=== PATIENT | male | born 1940 | race Caucasian/White ===

== ENCOUNTER → 2016-08-16 | Outpatient (REF) | payer MEDICARE ==
[~2016-08-16] MED LIST: ASPI325T OR; ATOR40TA PO; BISO5TAB5 PO; CALA80TA OR; FINA5TAB2 PO; FLOM5CAP PO; GLUC1000 OR; HYDR10TAB PO; ISOS30TA4 PO; LISI-538 PO; LISI10TA4 OR; LISI20TA5 OR; LOPE2CA PO; METF-414 PO; ONDA4TAB6 PO; PRAD150C PO; PROA1AER INH; SPIR25TA2 PO; pradaxa PO; robitussin PO
[2016-08-16 18:51] LABS: BASO % 0.5 % (0.0-1.0); EOS # 0.1 K/mm3 (0.0-0.50); EOS % 0.9 % (0.0-3.0); LARGE UNSTAINED CELL # 0.2 K/mm3 (0.0-0.4); LARGE UNSTAINED CELL % 2.3 % (0.0-4.0); LYMPH # 2.8 K/mm3 (1.5-4.5); LYMPH % 33.9 % (24.0-44.0); MEAN CORPUSCULAR HEMOGLOBIN 31.1 pg (27.0-33.0); MEAN CORPUSCULAR HGB CONC 32.7 g/dl (32.0-36.5); MEAN CORPUSCULAR VOLUME 94.9 fl (80.0-96.0); MONO # 0.7 K/mm3 (0.0-0.8); MONO % 8.2 % (0.0-5.0); NEUTROPHILS # 4.3 K/mm3 (1.8-7.7); NEUTROPHILS % 54.2 % (36.0-66.0); PLATELET COUNT, AUTOMATED 224 k/mm3 (150-450); RED CELL DISTRIBUTION WIDTH 13.5 % (11.5-14.5); WHITE BLOOD COUNT 7.9 K/mm3 (4.0-10.0)
[2016-08-16 19:15] LABS: ALBUMIN 3.2 GM/DL (3.2-5.2); ALBUMIN/GLOBULIN RATIO 0.86 (1.00-1.93); ALKALINE PHOSPHATASE 108 U/L (45-117); ALT/SGPT 15 U/L (12-78); ANION GAP 7 MEQ/L (8-16); AST/SGOT 12 U/L (15-37); BILIRUBIN,TOTAL 0.5 MG/DL (0.2-1.0); BLOOD UREA NITROGEN 14 MG/DL (7-18); CALCIUM LEVEL 8.3 MG/DL (8.8-10.2); CARBON DIOXIDE LEVEL 26 MEQ/L (21-32); CHLORIDE LEVEL 108 MEQ/L (98-107); CHOLESTEROL LEVEL 87 MG/DL (<200); CREATININE FOR GFR 0.89 MG/DL (0.70-1.30); GLOMERULAR FILTRATION RATE > 60.0 (>42); GLUCOSE, FASTING 111 MG/DL (83-110); POTASSIUM SERUM 4.2 MEQ/L (3.5-5.1); SODIUM LEVEL 141 MEQ/L (136-145); TOTAL PROTEIN 6.9 GM/DL (6.4-8.2); TRIGLYCERIDES LEVEL 103 MG/DL (<150)
== END ==
LOC: M SFHCADAM 16:08
PROVIDERS: ATTEND Physician Assistant Medical
DX: E11.9 Type 2 diabetes mellitus without complications (principal); F17.210 Nicotine dependence, cigarettes, uncomplicated; J44.9 Chronic obstructive pulmonary disease, unspecified; I25.5 Ischemic cardiomyopathy; E78.00 Pure hypercholesterolemia, unspecified; D63.8 Anemia in other chronic diseases classified elsewhere; Z85.038 Personal history of other malignant neoplasm of large intestine; Z23 Encounter for immunization
CPT/HCPCS: 80053; 80061; 83036; 84443; 85025; 90471; 90715; 90732; G0009; G0463

== ENCOUNTER → 2016-10-09 | Outpatient (REF) | payer MEDICARE ==
[~2016-10-09] MED LIST changes: -ATOR40TA PO; +ATOR40TA75 PO; -PROA1AER INH; +PROAAER10 INH
== END ==
LOC: M SMT 17:28
PROVIDERS: ATTEND Urology
DX: N39.0 Urinary tract infection, site not specified (principal)
CPT/HCPCS: 51798; 87086; G0463

== ENCOUNTER → 2017-03-25 | Outpatient (REF) | payer MEDICARE ==
[2017-03-25 13:09] LABS: BASO # 0.1 10^3/uL (0.0-0.2); BASO % 0.6 % (0.0-1.0); EOS # 0.1 10^3/uL (0.0-0.50); EOS % 1.4 % (0.0-3.0); IMMATURE GRANULOCYTE % 0.6 % (0-0); LYMPH # 2.4 10^3/uL (1.5-4.5); LYMPH % 28.6 % (24.0-44.0); MEAN CORPUSCULAR HEMOGLOBIN 32.3 pg (27.0-33.0); MEAN CORPUSCULAR HGB CONC 32.6 g/dl (32.0-36.5); MEAN CORPUSCULAR VOLUME 98.9 fl (80.0-96.0); MONO # 0.9 10^3/uL (0.0-0.8); MONO % 10.3 % (0.0-5.0); NEUTROPHILS # 4.9 10^3/uL (1.8-7.7); NEUTROPHILS % 58.5 % (36.0-66.0); PLATELET COUNT, AUTOMATED 219 10^3/uL (150-450); RED CELL DISTRIBUTION WIDTH 13.2 % (11.5-14.5); WHITE BLOOD COUNT 8.4 10^3/uL (4.0-10.0)
[2017-03-25 14:12] LABS: ALBUMIN 3.4 GM/DL (3.2-5.2); ALBUMIN/GLOBULIN RATIO 0.85 (1.00-1.93); ALKALINE PHOSPHATASE 114 U/L (45-117); ALT/SGPT 21 U/L (12-78); ANION GAP 12 MEQ/L (8-16); AST/SGOT 13 U/L (7-37); BILIRUBIN,TOTAL 0.6 MG/DL (0.2-1.0); BLOOD UREA NITROGEN 14 MG/DL (7-18); CALCIUM LEVEL 8.5 MG/DL (8.8-10.2); CARBON DIOXIDE LEVEL 22 MEQ/L (21-32); CHLORIDE LEVEL 106 MEQ/L (98-107); CHOLESTEROL LEVEL 90 MG/DL (<200); CREATININE FOR GFR 0.94 MG/DL (0.70-1.30); GLOMERULAR FILTRATION RATE > 60.0 (>42); GLUCOSE, FASTING 181 MG/DL (83-110); POTASSIUM SERUM 4.3 MEQ/L (3.5-5.1); SODIUM LEVEL 140 MEQ/L (136-145); TOTAL PROTEIN 7.4 GM/DL (6.4-8.2); TRIGLYCERIDES LEVEL 101 MG/DL (<150)
== END ==
LOC: M SFHCADAM 09:23
PROVIDERS: ATTEND Physician Assistant Medical
DX: I25.5 Ischemic cardiomyopathy (principal); E78.00 Pure hypercholesterolemia, unspecified; E11.9 Type 2 diabetes mellitus without complications
CPT/HCPCS: 80053; 80061; 82043; 83036; 84443; 85025; 90662; G0008

== ENCOUNTER → 2017-06-09 | Outpatient (REF) | payer MEDICARE ==
[2017-06-09 19:21] LABS: APPEARANCE, URINE CLEAR (CLEAR); BACTERIA, URINE AUTO 1+ (NEGATIVE); BILIRUBIN, URINE AUTO NEGATIVE (NEGATIVE); BLOOD, URINE BLOOD 1+ (NEGATIVE); COLOR, URINE YELLOW (YELLOW); GLUCOSE, URINE (UA) AUTO 1+ mg/dL (NEGATIVE); KETONE, URINE AUTO NEGATIVE (NEGATIVE); LEUKOCYTE ESTERASE, URINE AUTO 2+ (NEGATIVE); NITRITE, URINE AUTO NEGATIVE (NEGATIVE); PROTEIN, URINE AUTO NEGATIVE (NEGATIVE); RBC, URINE AUTO 4 /HPF (0-3); SPECIFIC GRAVITY URINE AUTO 1.018 (1.002-1.035); SQUAMOUS EPITHELIAL CELL UR AU 1 /HPF (0-6); UROBILINOGEN, URINE AUTO 0.2 mg/dL (0.0-2.0); WBC, URINE AUTO 8 /HPF (0-3)
== END ==
LOC: M SMT 17:10
DX: N40.1 Benign prostatic hyperplasia with lower urinary tract symptoms (principal)
CPT/HCPCS: 81001

== ENCOUNTER → 2017-10-30 | Outpatient (REF) | payer MEDICARE ==
[2017-10-30 19:32] LABS: BASO # 0.1 10^3/uL (0.0-0.2); BASO % 0.6 % (0.0-1.0); EOS # 0.1 10^3/uL (0.0-0.50); EOS % 0.9 % (0.0-3.0); HEMOGLOBIN 12.6 g/dl (13.5-17.5); IMMATURE GRANULOCYTE % 0.6 % (0-3.0); LYMPH % 33.6 % (24.0-44.0); MEAN CORPUSCULAR HEMOGLOBIN 32.6 pg (27.0-33.0); MEAN CORPUSCULAR HGB CONC 33.2 g/dl (32.0-36.5); MEAN CORPUSCULAR VOLUME 98.4 fl (80.0-96.0); MONO % 10.6 % (0.0-5.0); NEUTROPHILS # 4.8 10^3/uL (1.8-7.7); NEUTROPHILS % 53.7 % (36.0-66.0); PLATELET COUNT, AUTOMATED 188 10^3/uL (150-450); RED BLOOD COUNT 3.86 10^6/uL (4.30-6.10); RED CELL DISTRIBUTION WIDTH 13.5 % (11.5-14.5)
[2017-10-30 19:53] LABS: ESTIMATED AVERAGE GLUCOSE 183 MG/DL (60-110)
[2017-10-30 20:05] LABS: TOTAL 25(OH) VITAMIN D 16.7 NG/ML (30.0-100.0)
[2017-10-30 20:06] LABS: ALBUMIN 3.2 GM/DL (3.2-5.2); ALBUMIN/GLOBULIN RATIO 0.86 (1.00-1.93); ALKALINE PHOSPHATASE 102 U/L (45-117); ALT/SGPT 20 U/L (12-78); ANION GAP 11 MEQ/L (8-16); AST/SGOT 10 U/L (7-37); BILIRUBIN,TOTAL 0.5 MG/DL (0.2-1.0); BLOOD UREA NITROGEN 20 MG/DL (7-18); CALCIUM LEVEL 8.6 MG/DL (8.8-10.2); CARBON DIOXIDE LEVEL 19 MEQ/L (21-32); CHLORIDE LEVEL 114 MEQ/L (98-107); CHOLESTEROL LEVEL 82 MG/DL (<200); CHOLESTEROL RISK RATIO 2.562 (<5); CREATININE FOR GFR 1.13 MG/DL (0.70-1.30); GLOMERULAR FILTRATION RATE > 60.0 (>42); GLUCOSE, FASTING 122 MG/DL (70-100); HDL CHOLESTEROL 32 MG/DL (>40); LDL CHOLESTEROL 24.6 MG/DL (<100); NON-HDL-C 50 MG/DL; POTASSIUM SERUM 4.3 MEQ/L (3.5-5.1); SODIUM LEVEL 144 MEQ/L (136-145); THYROID STIMULATING HORMONE 0.824 uIU/ML (0.358-3.740); TOTAL PROTEIN 6.9 GM/DL (6.4-8.2); TRIGLYCERIDES LEVEL 127 MG/DL (<150)
== END ==
LOC: M SFHCADAM 15:40
DX: I25.5 Ischemic cardiomyopathy (principal); E11.9 Type 2 diabetes mellitus without complications; E78.00 Pure hypercholesterolemia, unspecified; J44.9 Chronic obstructive pulmonary disease, unspecified; Z79.899 Other long term (current) drug therapy
CPT/HCPCS: 84443

== ENCOUNTER → 2017-10-31 | Outpatient (REF) | payer MEDICARE ==
[2017-10-31 20:03] LABS: HEMATOCRIT 37.9 % (42.0-52.0); HEMOGLOBIN 12.2 g/dl (13.5-17.5); MEAN CORPUSCULAR HGB CONC 32.2 g/dl (32.0-36.5); MEAN CORPUSCULAR VOLUME 99.5 fl (80.0-96.0); PLATELET COUNT, AUTOMATED 181 10^3/uL (150-450); RED BLOOD COUNT 3.81 10^6/uL (4.30-6.10); RED CELL DISTRIBUTION WIDTH 13.4 % (11.5-14.5); WHITE BLOOD COUNT 7.4 10^3/uL (4.0-10.0)
[2017-10-31 20:41] LABS: FERRITIN 109 NG/ML (26-388); IRON (FE) 80 UG/DL (65-175); PERCENT SATURATION 29.4 % (19.7-50.0); TOTAL IRON BINDING CAPACITY 272 UG/DL (250-450)
[2017-10-31 20:48] LABS: FOLATE 13.3 NG/ML; VITAMIN B12 LEVEL 356 PG/ML
== END ==
LOC: M SFHCADAM 13:56
DX: D64.9 Anemia, unspecified (principal)
CPT/HCPCS: 82746

== ENCOUNTER → 2017-12-11 | Outpatient (CLI) | payer MEDICARE | LOC: M RAD 11:58 | DX: N40.1 Benign prostatic hyperplasia with lower urinary tract symptoms (principal); K76.0 Fatty (change of) liver, not elsewhere classified; N32.3 Diverticulum of bladder; N28.1 Cyst of kidney, acquired; N32.89 Other specified disorders of bladder | CPT/HCPCS: 76775 ==

== ENCOUNTER 2018-01-16 14:19 | Inpatient (IN) | payer MEDICARE ==
[~2018-01-16 14:19] MED LIST changes: +ACETAMINOPHEN TAB 650MG DOSE (2X325MG) PO; -ASPI325T OR; -ATOR40TA75 PO; +BISACODYL 5 MG TAB PO; -BISO5TAB5 PO; -CALA80TA OR; +DOCUSATE SODIUM 100 MG CAP PO; -FINA5TAB2 PO; -FLOM5CAP PO; -GLUC1000 OR; -HYDR10TAB PO; -ISOS30TA4 PO; -LISI-538 PO; -LISI10TA4 OR; -LISI20TA5 OR; -LOPE2CA PO; -METF-414 PO; -ONDA4TAB6 PO; -PRAD150C PO; -PROAAER10 INH; -SPIR25TA2 PO; -pradaxa PO; -robitussin PO
[2018-01-16 14:56] LABS: BASO # 0.1 10^3/uL (0.0-0.2); BASO % 0.5 % (0.0-1.0); EOS # 0.1 10^3/uL (0.0-0.50); HEMATOCRIT 36.3 % (42.0-52.0); HEMOGLOBIN 11.9 g/dl (13.5-17.5); IMMATURE GRANULOCYTE % 0.6 % (0-3.0); LYMPH # 2.3 10^3/uL (1.5-4.5); LYMPH % 24.9 % (24.0-44.0); MEAN CORPUSCULAR HEMOGLOBIN 32.2 pg (27.0-33.0); MEAN CORPUSCULAR HGB CONC 32.8 g/dl (32.0-36.5); MEAN CORPUSCULAR VOLUME 98.4 fl (80.0-96.0); MONO # 0.8 10^3/uL (0.0-0.8); MONO % 8.6 % (0.0-5.0); NEUTROPHILS % 64.4 % (36.0-66.0); PLATELET COUNT, AUTOMATED 225 10^3/uL (150-450); RED BLOOD COUNT 3.69 10^6/uL (4.30-6.10); RED CELL DISTRIBUTION WIDTH 13.2 % (11.5-14.5); WHITE BLOOD COUNT 9.4 10^3/uL (4.0-10.0)
[2018-01-16 16:07] LABS: ALBUMIN/GLOBULIN RATIO 0.73 (1.00-1.93); ALKALINE PHOSPHATASE 97 U/L (45-117); ALT/SGPT 16 U/L (12-78); ANION GAP 8 MEQ/L (8-16); AST/SGOT 10 U/L (7-37); BILIRUBIN,TOTAL 0.5 MG/DL (0.2-1.0); BLOOD UREA NITROGEN 16 MG/DL (7-18); C REACTIVE PROTEIN QUANTITATIV 3.15 MG/DL (0.00-0.30); CALCIUM LEVEL 8.4 MG/DL (8.8-10.2); CARBON DIOXIDE LEVEL 23 MEQ/L (21-32); CHLORIDE LEVEL 108 MEQ/L (98-107); CREATININE FOR GFR 1.12 MG/DL (0.70-1.30); GLOMERULAR FILTRATION RATE > 60.0 (>42); GLUCOSE, FASTING 171 MG/DL (70-100); POTASSIUM SERUM 4.3 MEQ/L (3.5-5.1); SODIUM LEVEL 139 MEQ/L (136-145); TOTAL PROTEIN 7.1 GM/DL (6.4-8.2)
[2018-01-16] MEDS: **hydrALAZINE** 10 MG TAB PO ×2 (17:15→21:19)
[2018-01-16] MEDS: FINASTERIDE 5 MG TAB PO (17:16)
[2018-01-16] MEDS: metFORMIN XR 500MG TAB *GLUCOPHAGE XR PO (18:24)
[2018-01-16] MEDS: CEFTAROLINE FOSAMIL 600 MG in D5W MINI-BAG PLUS 50 ML IV (18:24)
[2018-01-16] MEDS: DABIGATRAN ETEXILATE 75 MG CAP (PRADAXA) PO (21:18)
[2018-01-16] MEDS: ATORVASTATIN 20 MG TAB PO (21:18)
[2018-01-16] MEDS: TAMSULOSIN 0.4 MG CAP PO (21:18)
[2018-01-17] MEDS: CEFTAROLINE FOSAMIL 600 MG in D5W MINI-BAG PLUS 50 ML IV ×2 (05:36→17:26)
[2018-01-17] MEDS: **hydrALAZINE** 10 MG TAB PO ×3 (05:37→20:54)
[2018-01-17 07:02] LABS: BASO # 0.1 10^3/uL (0.0-0.2); BASO % 0.6 % (0.0-1.0); EOS # 0.2 10^3/uL (0.0-0.50); EOS % 1.6 % (0.0-3.0); HEMATOCRIT 37.9 % (42.0-52.0); HEMOGLOBIN 12.6 g/dl (13.5-17.5); IMMATURE GRANULOCYTE % 0.7 % (0-3.0); LYMPH # 2.9 10^3/uL (1.5-4.5); LYMPH % 31.3 % (24.0-44.0); MEAN CORPUSCULAR HEMOGLOBIN 32.2 pg (27.0-33.0); MEAN CORPUSCULAR HGB CONC 33.2 g/dl (32.0-36.5); MEAN CORPUSCULAR VOLUME 96.9 fl (80.0-96.0); MONO % 10.9 % (0.0-5.0); NEUTROPHILS # 5.1 10^3/uL (1.8-7.7); NEUTROPHILS % 54.9 % (36.0-66.0); PLATELET COUNT, AUTOMATED 221 10^3/uL (150-450); RED BLOOD COUNT 3.91 10^6/uL (4.30-6.10); RED CELL DISTRIBUTION WIDTH 13.2 % (11.5-14.5); WHITE BLOOD COUNT 9.4 10^3/uL (4.0-10.0)
[2018-01-17 07:04] LABS: ALBUMIN 2.9 GM/DL (3.2-5.2); ANION GAP 9 MEQ/L (8-16); BLOOD UREA NITROGEN 18 MG/DL (7-18); C REACTIVE PROTEIN QUANTITATIV 2.77 MG/DL (0.00-0.30); CALCIUM LEVEL 8.3 MG/DL (8.8-10.2); CARBON DIOXIDE LEVEL 21 MEQ/L (21-32); CHLORIDE LEVEL 108 MEQ/L (98-107); CREATININE FOR GFR 0.94 MG/DL (0.70-1.30); GLOMERULAR FILTRATION RATE > 60.0 (>42); GLUCOSE, FASTING 170 MG/DL (70-100); POTASSIUM SERUM 4.3 MEQ/L (3.5-5.1); SODIUM LEVEL 138 MEQ/L (136-145)
[2018-01-17] MEDS ORDERED: LIDOCAINE 1% MDV 20ML VIAL As Ordered (07:26)
[2018-01-17 07:31] LABS: ERYTHROCYTE SEDIMENTATION RATE 70 mm/hr (0-20)
[2018-01-17] MEDS: ASPIRIN 81 MG ENTERIC TAB PO (08:35)
[2018-01-17] MEDS: DABIGATRAN ETEXILATE 75 MG CAP (PRADAXA) PO ×2 (08:35→20:50)
[2018-01-17] MEDS: FINASTERIDE 5 MG TAB PO (08:36)
[2018-01-17] MEDS: SPIRONOLACTONE 25 MG TAB PO (08:36)
[2018-01-17] MEDS: LORATADINE 10 MG TAB PO (08:38)
[2018-01-17] MEDS: ISOSORBIDE MON. (IMDUR) 30 MG XR TAB PO (08:38)
[2018-01-17] MEDS: BISOPROLOL FUMARATE 5 MG TAB PO (08:39)
[2018-01-17] MEDS: LISINOPRIL 20 MG TAB PO (08:39)
[2018-01-17] MEDS: INFLUENZA VIRUS VACCINE HIGH DOSE 0.5 ML SYRINGE (90662) IM (08:42)
[2018-01-17 09:21] LABS: SOURCE, BODY FLUID RT ELBOW; SYNOVIAL FLUID COLOR AMBER (YELLOW)
[2018-01-17 09:22] LABS: APPEARANCE, BODY FLUID CLOUDY (CLEAR); BF DIFF IF INDICATED? YES (NO); BF MONONUCLEAR CELL % 12.2 % (0-0); BF POLYMORPHONUCLEAR CELL % 87.8 % (0-0); RBC BODY FLUID 20 10^3/uL (<2); WBC BODY FLUID 18790 /uL (0-10)
[2018-01-17 09:57] LABS: CRYSTALS, BODY FLUID NONE SEEN (NONE SEEN); SOURCE, BODY FLUID CRYSTALS RT ELBOW
[2018-01-17] MEDS ORDERED: ALBUTEROL 90 MCG/ACT 8GM HFA INHALER INH (15:45)
[2018-01-17] MEDS: metFORMIN XR 500MG TAB *GLUCOPHAGE XR PO (17:25)
[2018-01-17 17:36] LABS: BEDSIDE GLUCOSE 161 MG/DL (83-110)
[2018-01-17] MEDS: TAMSULOSIN 0.4 MG CAP PO (20:50)
[2018-01-17] MEDS: ATORVASTATIN 20 MG TAB PO (20:50)
[2018-01-18] MEDS: **hydrALAZINE** 10 MG TAB PO (06:00)
[2018-01-18] MEDS: CEFTAROLINE FOSAMIL 600 MG in D5W MINI-BAG PLUS 50 ML IV (06:34)
[2018-01-18] MEDS: LISINOPRIL 20 MG TAB PO (09:00)
[2018-01-18] MEDS: DABIGATRAN ETEXILATE 75 MG CAP (PRADAXA) PO (09:02)
[2018-01-18] MEDS: LORATADINE 10 MG TAB PO (09:03)
[2018-01-18] MEDS: FINASTERIDE 5 MG TAB PO (09:03)
[2018-01-18] MEDS: ASPIRIN 81 MG ENTERIC TAB PO (09:03)
[2018-01-18] MEDS: ISOSORBIDE MON. (IMDUR) 30 MG XR TAB PO (09:03)
[2018-01-18] MEDS: BISOPROLOL FUMARATE 5 MG TAB PO (09:09)
[2018-01-18] MEDS: SPIRONOLACTONE 25 MG TAB PO (09:10)
== END 2018-01-18 12:56 | disposition home or self-care (01) | DRG 558 ==
LOC: M MS5PR 14:19
DX: M70.21 Olecranon bursitis, right elbow (principal); I48.92 Unspecified atrial flutter; Z79.899 Other long term (current) drug therapy; E11.9 Type 2 diabetes mellitus without complications; I25.10 Atherosclerotic heart disease of native coronary artery without angina pectoris; I25.2 Old myocardial infarction; I11.9 Hypertensive heart disease without heart failure; J43.9 Emphysema, unspecified; N40.0 Benign prostatic hyperplasia without lower urinary tract symptoms; E55.9 Vitamin D deficiency, unspecified; Z85.038 Personal history of other malignant neoplasm of large intestine; Z88.8 Allergy status to other drugs, medicaments and biological substances; F17.200 Nicotine dependence, unspecified, uncomplicated

== ENCOUNTER → 2018-01-20 | Outpatient (REF) | payer MEDICARE ==
[2018-01-20 19:24] LABS: BF MONONUCLEAR CELL % 8.3 % (0-0); BF POLYMORPHONUCLEAR CELL % 91.7 % (0-0)
[2018-01-20 19:26] LABS: APPEARANCE, BODY FLUID TURBID (CLEAR); SOURCE, BODY FLUID RT ELBOW; SYNOVIAL FLUID COLOR RED (YELLOW)
[2018-01-20 19:27] LABS: WBC BODY FLUID 19765 /uL (0-10)
[2018-01-20 19:28] LABS: BF DIFF IF INDICATED? YES (NO); RBC BODY FLUID 285 10^3/uL (<2)
[2018-01-20 19:33] LABS: CRYSTALS, BODY FLUID NONE SEEN (NONE SEEN); SOURCE, BODY FLUID CRYSTALS RT ELBOW
[2018-01-20 21:44] LABS: SOURCE, BODY FLUID GLUCOSE RT ELBOW; SOURCE, BODY FLUID URIC ACID RT ELBOW; URIC ACID, BODY FLUID 6.1 MG/DL (NOT ESTABLISHED)
[2018-01-21 08:03] LABS: BODY FLUID RHEUMATOID SCREEN POSITIVE (NEGATIVE)
[2018-01-21 08:14] LABS: BODY FLUID RHEUMATOID TITER 1:32
[2018-01-21 08:15] LABS: MUCIN CLOT TEST 4+ (4+)
== END ==
LOC: M LAB REF 17:46
DX: M70.21 Olecranon bursitis, right elbow (principal)
CPT/HCPCS: 82945

== ENCOUNTER → 2018-05-12 | Outpatient (REF) | payer MEDICARE ==
[~2018-05-12] MED LIST changes: -ACETAMINOPHEN TAB 650MG DOSE (2X325MG) PO; +ASPI1TAB PO; +ASPI325T OR; +ATOR40TA75 PO; -BISACODYL 5 MG TAB PO; +BISO5TAB5 PO; +CALA80TA OR; -DOCUSATE SODIUM 100 MG CAP PO; +FINA5TAB2 PO; +FLOM0.4C39 PO; +GLUC1000 OR; +HYDR10TAB PO; +ISOS30TA4 PO; +LISI-538 PO; +LISI10TA4 OR; +LISI20TA5 OR; +LOPE2CA PO; +METF-414 PO; +ONDA4TAB6 PO; +PRAD150C PO; +PROAAER10 INH; +SPIR-10 PO; +pradaxa PO; +robitussin PO
[2018-05-12 12:56] LABS: BASO # 0.1 10^3/uL (0.0-0.2); BASO % 0.5 % (0.0-1.0); EOS # 0.1 10^3/uL (0.0-0.50); EOS % 1.2 % (0.0-3.0); HEMATOCRIT 41.7 % (42.0-52.0); HEMOGLOBIN 13.6 g/dl (13.5-17.5); LYMPH # 3.4 10^3/uL (1.5-4.5); LYMPH % 34.8 % (24.0-44.0); MEAN CORPUSCULAR HEMOGLOBIN 32.3 pg (27.0-33.0); MEAN CORPUSCULAR HGB CONC 32.6 g/dl (32.0-36.5); NEUTROPHILS # 5.1 10^3/uL (1.8-7.7); NEUTROPHILS % 52.8 % (36.0-66.0); PLATELET COUNT, AUTOMATED 221 10^3/uL (150-450); RED BLOOD COUNT 4.21 10^6/uL (4.30-6.10); WHITE BLOOD COUNT 9.7 10^3/uL (4.0-10.0)
[2018-05-12 13:24] LABS: ALBUMIN 3.1 GM/DL (3.2-5.2); ALT/SGPT 17 U/L (12-78); BILIRUBIN,TOTAL 0.5 MG/DL (0.2-1.0); BLOOD UREA NITROGEN 14 MG/DL (7-18); CALCIUM LEVEL 8.4 MG/DL (8.8-10.2); CARBON DIOXIDE LEVEL 24 MEQ/L (21-32); CHLORIDE LEVEL 106 MEQ/L (98-107); CHOLESTEROL LEVEL 93 MG/DL (<200); CHOLESTEROL RISK RATIO 2.818 (<5); GLOMERULAR FILTRATION RATE > 60.0 (>42); GLUCOSE, FASTING 162 MG/DL (70-100); HDL CHOLESTEROL 33 MG/DL (>40); LDL CHOLESTEROL 37 MG/DL (<100); NON-HDL-C 60 MG/DL; POTASSIUM SERUM 4.2 MEQ/L (3.5-5.1); SODIUM LEVEL 142 MEQ/L (136-145); TOTAL PROTEIN 6.8 GM/DL (6.4-8.2); TRIGLYCERIDES LEVEL 113 MG/DL (<150)
[2018-05-12 13:57] LABS: CREATININE, URINE 94.3 MG/DL; MALB URINE SIEMENS 37.7 MG/L; MAU/CREAT RATIO 39.9 MCG/MG (0.0-30.0)
[2018-05-12 14:28] LABS: HEMOGLOBIN A1c 8.7 %
[2018-05-12 21:27] LABS: TOTAL 25(OH) VITAMIN D 15.5 NG/ML (30.0-100.0)
== END ==
LOC: M SFHCADAM 08:12
PROVIDERS: ATTEND Physician Assistant Medical
DX: E11.9 Type 2 diabetes mellitus without complications (principal); E55.9 Vitamin D deficiency, unspecified

== ENCOUNTER → 2019-02-04 | Outpatient (REF) | payer MEDICARE ==
[~2019-02-04] MED LIST changes: -ASPI1TAB PO; +ASPI81TA26 PO; -BISO5TAB5 PO; +BISO5TAB9 PO; +HYDR-2773 PO; -PRAD150C PO; +PRAD150C6 PO
[2019-02-04 17:14] LABS: HEMATOCRIT 40.9 % (42.0-52.0); HEMOGLOBIN 13.2 g/dl (13.5-17.5); MEAN CORPUSCULAR HEMOGLOBIN 33.4 pg (27.0-33.0); MEAN CORPUSCULAR HGB CONC 32.3 g/dl (32.0-36.5); MEAN CORPUSCULAR VOLUME 103.5 fl (80.0-96.0); PLATELET COUNT, AUTOMATED 219 10^3/uL (150-450); RED BLOOD COUNT 3.95 10^6/uL (4.30-6.10)
[2019-02-04 17:33] LABS: ALBUMIN 3.4 GM/DL (3.2-5.2); ALT/SGPT 18 U/L (12-78); BILIRUBIN,TOTAL 0.5 MG/DL (0.2-1.0); BLOOD UREA NITROGEN 20 MG/DL (7-18); CALCIUM LEVEL 8.8 MG/DL (8.8-10.2); CARBON DIOXIDE LEVEL 26 MEQ/L (21-32); CHLORIDE LEVEL 105 MEQ/L (98-107); CHOLESTEROL LEVEL 90 MG/DL (<200); CREATININE FOR GFR 1.12 MG/DL (0.70-1.30); GLOMERULAR FILTRATION RATE > 60.0 (>42); GLUCOSE, FASTING 143 MG/DL (70-100); HDL CHOLESTEROL 36 MG/DL (>40); LDL CHOLESTEROL 36 MG/DL (<100); MAGNESIUM LEVEL 1.9 MG/DL (1.8-2.4); NON-HDL-C 54 MG/DL; POTASSIUM SERUM 4.6 MEQ/L (3.5-5.1); SODIUM LEVEL 138 MEQ/L (136-145); TOTAL PROTEIN 7.1 GM/DL (6.4-8.2); TRIGLYCERIDES LEVEL 92 MG/DL (<150)
== END ==
LOC: M LABDRWAD 16:33
PROVIDERS: ATTEND Physician Assistant
DX: I48.3 Typical atrial flutter (principal); I25.10 Atherosclerotic heart disease of native coronary artery without angina pectoris; I25.5 Ischemic cardiomyopathy; E78.00 Pure hypercholesterolemia, unspecified

== ENCOUNTER → 2019-02-22 | Outpatient (CLI) | payer MEDICARE ==
--- NOTE | 2019-02-22 08:54 | REP ---
Clinical: Urinary retention. Technique: Real time pro scale ultrasound examination using curved array transducer. Findings: Bilateral kidneys are normal in contour, size, echogenicity, and reniform shape without hydronephrosis, nephrolithiasis, or renal mass lesion. No perinephric fluid collections are identified. Right kidney measures 8.8 x 4.4 x 3.9 cm. Left kidney measures 9.4 x 4.2 x 4.0 cm and includes 2.5 x 1.5 x 1.9 cm medial mid pole cyst. Incidental hyperechoic area within the right lobe of the liver measuring 3.2 x 2.2 x 2.7 cm which may reflect mass versus focal hepatic steatosis. Impression: 1. Essentially normal bilateral kidneys. 2.5 cm left renal simple cyst noted. 2. Focal hyperechoic area within the liver may represent fatty infiltration versus mass. This is not identified on the abdominal CT dated 12/26/2015 and may warrant pre and postcontrast CT of the abdomen for further investigation. Electronically Signed by Jerel Clemens MD 02/22/2019 08:45 A
--- NOTE | 2019-02-22 08:57 | REP ---
Clinical: Urinary retention. Technique: Real time pro scale ultrasound examination using curved array transducer. Findings: A posterior bladder diverticulum measuring approximately 3 cm maximal diameter is identified. No other bladder abnormality is appreciated. Prevoid bladder measures 9.7 x 9.7 x 8.4 cm (535 ml). Postvoid bladder measures 10.2 x 11.2 x 8.2 cm (612 ml). Impression: 1. Small posterior bladder diverticulum which may be the cause for increased bladder volume on postvoid images. Electronically Signed by Jerel Clemens MD 02/22/2019 08:47 A
[2019-02-22 09:07] LABS: BLOOD UREA NITROGEN 21 MG/DL (7-18); CALCIUM LEVEL 8.6 MG/DL (8.8-10.2); CARBON DIOXIDE LEVEL 23 MEQ/L (21-32); CHLORIDE LEVEL 112 MEQ/L (98-107); CREATININE FOR GFR 1.22 MG/DL (0.70-1.30); GLOMERULAR FILTRATION RATE > 60.0 (>42); GLUCOSE, FASTING 200 MG/DL (70-100); POTASSIUM SERUM 4.6 MEQ/L (3.5-5.1); SODIUM LEVEL 141 MEQ/L (136-145)
== END ==
LOC: M RAD 07:46
PROVIDERS: ATTEND Nurse Practitioner Family
DX: R33.9 Retention of urine, unspecified (principal)

== ENCOUNTER → 2019-10-20 | Outpatient (REF) | payer MEDICARE ==
[~2019-10-20] MED LIST changes: +BISO5TAB14 PO; -BISO5TAB9 PO
[2019-10-20 17:57] LABS: HEMATOCRIT 38.6 % (42.0-52.0); HEMOGLOBIN 12.5 g/dl (13.5-17.5); MEAN CORPUSCULAR HEMOGLOBIN 32.1 pg (27.0-33.0); MEAN CORPUSCULAR HGB CONC 32.4 g/dl (32.0-36.5); MEAN CORPUSCULAR VOLUME 99.2 fl (80.0-96.0); PLATELET COUNT, AUTOMATED 222 10^3/uL (150-450); RED BLOOD COUNT 3.89 10^6/uL (4.30-6.10); WHITE BLOOD COUNT 8.7 10^3/uL (4.0-10.0)
[2019-10-20 17:58] LABS: BLOOD UREA NITROGEN 15 MG/DL (7-18); CALCIUM LEVEL 8.6 MG/DL (8.8-10.2); CARBON DIOXIDE LEVEL 24 MEQ/L (21-32); CHLORIDE LEVEL 110 MEQ/L (98-107); CREATININE FOR GFR 1.01 MG/DL (0.70-1.30); GLOMERULAR FILTRATION RATE > 60.0 (>42); GLUCOSE, FASTING 151 MG/DL (70-100); MAGNESIUM LEVEL 1.7 MG/DL (1.8-2.4); POTASSIUM SERUM 4.5 MEQ/L (3.5-5.1); SODIUM LEVEL 141 MEQ/L (136-145)
== END ==
LOC: M LABDRWAD 16:35
PROVIDERS: ATTEND Physician Assistant
DX: I48.3 Typical atrial flutter (principal); I25.5 Ischemic cardiomyopathy

== ENCOUNTER → 2019-11-09 | Outpatient (REF) | payer MEDICARE ==
[2019-11-09 17:28] LABS: BASO # 0.1 10^3/uL (0.0-0.2); BASO % 0.7 % (0.0-1.0); EOS # 0.1 10^3/uL (0.0-0.5); HEMOGLOBIN 12.2 g/dl (13.5-17.5); LYMPH # 2.4 10^3/uL (1.5-5.0); LYMPH % 29.7 % (24.0-44.0); MEAN CORPUSCULAR HEMOGLOBIN 31.9 pg (27.0-33.0); MEAN CORPUSCULAR HGB CONC 32.1 g/dl (32.0-36.5); MEAN CORPUSCULAR VOLUME 99.5 fl (80.0-96.0); MONO # 0.8 10^3/uL (0.0-0.8); MONO % 9.6 % (0.0-5.0); NEUTROPHILS # 4.8 10^3/uL (1.5-8.5); NEUTROPHILS % 58.3 % (36.0-66.0); PLATELET COUNT, AUTOMATED 216 10^3/uL (150-450); RED BLOOD COUNT 3.82 10^6/uL (4.30-6.10); WHITE BLOOD COUNT 8.2 10^3/uL (4.0-10.0)
[2019-11-09 18:04] LABS: ALBUMIN 3.1 GM/DL (3.2-5.2); ALT/SGPT 13 U/L (12-78); BILIRUBIN,TOTAL 0.5 MG/DL (0.2-1.0); BLOOD UREA NITROGEN 14 MG/DL (7-18); CALCIUM LEVEL 8.4 MG/DL (8.8-10.2); CARBON DIOXIDE LEVEL 24 MEQ/L (21-32); CHLORIDE LEVEL 108 MEQ/L (98-107); CHOLESTEROL LEVEL 73 MG/DL (<200); CREATININE FOR GFR 0.96 MG/DL (0.70-1.30); FERRITIN 59 NG/ML (26-388); GLOMERULAR FILTRATION RATE > 60.0 (>42); GLUCOSE, FASTING 189 MG/DL (70-100); HDL CHOLESTEROL 25 MG/DL (>40); IRON (FE) 68 UG/DL (65-175); LDL CHOLESTEROL 18 MG/DL (<100); NON-HDL-C 48 MG/DL; PERCENT SATURATION 23.1 % (19.7-50.0); POTASSIUM SERUM 4.2 MEQ/L (3.5-5.1); SODIUM LEVEL 139 MEQ/L (136-145); THYROID STIMULATING HORMONE 0.793 uIU/ML (0.358-3.740); TOTAL IRON BINDING CAPACITY 294 UG/DL (250-450); TOTAL PROTEIN 6.9 GM/DL (6.4-8.2); TRIGLYCERIDES LEVEL 149 MG/DL (<150)
[2019-11-09 18:16] LABS: HEMOGLOBIN A1c 8.6 %
[2019-11-09 21:46] LABS: FOLATE 18.6 NG/ML
[2019-11-09 21:47] LABS: VITAMIN B12 LEVEL 370 PG/ML
[2019-11-10 15:45] LABS: CREATININE, URINE 96.7 MG/DL; MALB URINE SIEMENS 39.4 MG/L; MAU/CREAT RATIO 40.7 MCG/MG (0.0-30.0)
== END ==
LOC: M SFHCADAM 16:05
PROVIDERS: ATTEND Physician Assistant Medical
DX: E11.9 Type 2 diabetes mellitus without complications (principal); I48.92 Unspecified atrial flutter; I25.5 Ischemic cardiomyopathy; D63.8 Anemia in other chronic diseases classified elsewhere
CPT/HCPCS: 80053; 80061; 82043; 82607; 82728; 82746; 83036; 83550; 84443; 85025; G0463

== ENCOUNTER → 2020-10-04 | Outpatient (REF) | payer MEDICARE ==
[~2020-10-04] MED LIST changes: +ISOS1TAB35 PO; -ISOS30TA4 PO; -LISI-538 PO; +LISI20TA33 PO
[2020-10-04 16:30] LABS: BASO # 0.1 10^3/uL (0.0-0.2); BASO % 0.4 % (0.0-1.0); EOS # 0.2 10^3/uL (0.0-0.5); EOS % 1.6 % (0.0-3.0); HEMOGLOBIN 10.1 g/dl (13.5-17.5); LYMPH # 1.4 10^3/uL (1.5-5.0); LYMPH % 10.8 % (24.0-44.0); MEAN CORPUSCULAR HEMOGLOBIN 30.7 pg (27.0-33.0); MEAN CORPUSCULAR HGB CONC 31.6 g/dl (32.0-36.5); MEAN CORPUSCULAR VOLUME 97.3 fl (80.0-96.0); MONO # 0.9 10^3/uL (0.0-0.8); MONO % 7.3 % (2.0-8.0); NEUTROPHILS % 78.2 % (36.0-66.0); PLATELET COUNT, AUTOMATED 411 10^3/uL (150-450); RED BLOOD COUNT 3.29 10^6/uL (4.30-6.10); WHITE BLOOD COUNT 12.9 10^3/uL (4.0-10.0)
[2020-10-04 18:24] LABS: ALBUMIN 1.9 GM/DL (3.2-5.2); ALT/SGPT 116 U/L (12-78); BILIRUBIN,TOTAL 0.4 MG/DL (0.2-1.0); BLOOD UREA NITROGEN 28 MG/DL (7-18); CARBON DIOXIDE LEVEL 21 MEQ/L (21-32); CHLORIDE LEVEL 104 MEQ/L (98-107); CHOLESTEROL LEVEL 70 MG/DL (<200); CHOLESTEROL RISK RATIO 5.833 (<5); CREATININE FOR GFR 1.17 MG/DL (0.70-1.30); FERRITIN 1082 NG/ML (26-388); GLOMERULAR FILTRATION RATE > 60.0 (>42); GLUCOSE, FASTING 353 MG/DL (70-100); HDL CHOLESTEROL 12 MG/DL (>40); IRON (FE) 29 UG/DL (65-175); LDL CHOLESTEROL 29 MG/DL (<100); NON-HDL-C 58 MG/DL; PERCENT SATURATION 15.3 % (19.7-50.0); POTASSIUM SERUM 5.1 MEQ/L (3.5-5.1); SODIUM LEVEL 136 MEQ/L (136-145); TOTAL IRON BINDING CAPACITY 190 UG/DL (250-450); TOTAL PROTEIN 6.4 GM/DL (6.4-8.2); TRIGLYCERIDES LEVEL 143 MG/DL (<150)
[2020-10-04 19:04] LABS: VITAMIN B12 LEVEL 555 PG/ML
[2020-10-04 19:05] LABS: FOLATE 9.3 NG/ML
[2020-10-04 20:51] LABS: HEMOGLOBIN A1c 10.1 %
[2020-10-04 21:18] LABS: TOTAL 25(OH) VITAMIN D 10.7 NG/ML (30.0-100.0)
== END ==
LOC: M SFHCADAM 14:48
PROVIDERS: ATTEND Physician Assistant Medical
DX: E11.9 Type 2 diabetes mellitus without complications (principal); D63.8 Anemia in other chronic diseases classified elsewhere; E55.9 Vitamin D deficiency, unspecified; E78.2 Mixed hyperlipidemia

== ENCOUNTER → 2020-10-19 | Outpatient (CLI) | payer MEDICARE ==
--- NOTE | 2020-10-19 09:02 | REP ---
INDICATION: ELEVATED FERRITIN LEVEL. COMPARISON: Comparison CT study December 26, 2015.. TECHNIQUE: Right upper quadrant sonography. FINDINGS: Scanning through the right upper quadrant of the abdomen demonstrates a normal sized, thin-walled gallbladder without evidence of stone. There is a 0.3 cm polyp on the nondependent wall the gallbladder however.. Common bile duct is normal measuring 0.5 cm in greatest diameter. There are ill-defined areas of increased echogenicity in the liver consistent with regional fatty infiltration. No other focal liver lesion is seen. Liver size is normal. No pancreatic abnormality is observed. No right renal abnormality is seen. There is no evidence of ascites. The right kidney measures 9.7 x 5.7 x 3.2 cm. There is a 0.9 cm cyst in the upper pole the right kidney. IMPRESSION: Evidence of regional fatty infiltration of the liver. Small gallbladder polyp, 0.3 cm, sub cm cyst right kidney. Otherwise negative.. <Electronically signed by Ranjit Canales > 10/19/20 [id number]
== END ==
LOC: M RAD 07:08
PROVIDERS: ATTEND Physician Assistant Medical
DX: R79.89 Other specified abnormal findings of blood chemistry (principal); R74.8 Abnormal levels of other serum enzymes

== ENCOUNTER → 2020-11-28 | Outpatient (REF) | payer MEDICARE ==
[2020-11-28 18:15] LABS: INR 2.47; PROTHROMBIN TIME 27.1 SECONDS (12.7-14.5)
[2020-11-28 19:05] LABS: HEPATITIS B CORE ANTIBODY IGM NEGATIVE (NEGATIVE); HEPATITIS B SURFACE ANTIGEN NEGATIVE (NEGATIVE); HEPATITIS C VIRUS ABY INDEX 0.2 INDEX (<0.8)
== END ==
LOC: M SFHCADAM 14:36
PROVIDERS: ATTEND Physician Assistant Medical
DX: R79.89 Other specified abnormal findings of blood chemistry (principal); R74.8 Abnormal levels of other serum enzymes; I25.5 Ischemic cardiomyopathy

== ENCOUNTER → 2020-11-28 | Outpatient (REF) | payer MEDICARE ==
[2020-11-28 18:55] LABS: BLOOD UREA NITROGEN 23 MG/DL (7-18); CALCIUM LEVEL 8.4 MG/DL (8.8-10.2); CARBON DIOXIDE LEVEL 27 MEQ/L (21-32); CHLORIDE LEVEL 105 MEQ/L (98-107); CREATININE FOR GFR 0.99 MG/DL (0.70-1.30); GLOMERULAR FILTRATION RATE > 60.0 (>42); GLUCOSE, FASTING 256 MG/DL (70-100); POTASSIUM SERUM 4.8 MEQ/L (3.5-5.1); SODIUM LEVEL 138 MEQ/L (136-145)
== END ==
LOC: M LABDRWAD 18:13
PROVIDERS: ATTEND Physician Assistant
DX: I25.5 Ischemic cardiomyopathy (principal)

== ENCOUNTER → 2020-12-28 | Outpatient (REF) | payer MEDICARE ==
[2020-12-28 19:56] LABS: BLOOD UREA NITROGEN 24 MG/DL (7-18); CALCIUM LEVEL 8.3 MG/DL (8.8-10.2); CARBON DIOXIDE LEVEL 27 MEQ/L (21-32); CHLORIDE LEVEL 105 MEQ/L (98-107); CREATININE FOR GFR 1.01 MG/DL (0.70-1.30); GLOMERULAR FILTRATION RATE > 60.0 (>42); GLUCOSE, FASTING 238 MG/DL (70-100); MAGNESIUM LEVEL 1.8 MG/DL (1.8-2.4); POTASSIUM SERUM 4.2 MEQ/L (3.5-5.1); SODIUM LEVEL 138 MEQ/L (136-145)
== END ==
LOC: M LABDRWAD 19:24
PROVIDERS: ATTEND Physician Assistant
DX: I25.5 Ischemic cardiomyopathy (principal)

== ENCOUNTER → 2021-04-12 | Outpatient (REF) | payer MEDICARE ==
[2021-04-12 17:19] LABS: BLOOD UREA NITROGEN 23 MG/DL (7-18); CALCIUM LEVEL 9.2 MG/DL (8.8-10.2); CARBON DIOXIDE LEVEL 24 MEQ/L (21-32); CHLORIDE LEVEL 108 MEQ/L (98-107); CREATININE FOR GFR 0.98 MG/DL (0.70-1.30); GLOMERULAR FILTRATION RATE > 60.0 (>35); GLUCOSE, FASTING 164 MG/DL (70-100); POTASSIUM SERUM 4.6 MEQ/L (3.5-5.1); SODIUM LEVEL 141 MEQ/L (136-145)
== END ==
LOC: M LABDRWAD 16:12
PROVIDERS: ATTEND Physician Assistant
DX: I25.5 Ischemic cardiomyopathy (principal)

== ENCOUNTER → 2021-06-13 | Outpatient (REF) | payer MEDICARE ==
[2021-06-13 17:10] LABS: BLOOD UREA NITROGEN 26 MG/DL (7-18); CALCIUM LEVEL 8.9 MG/DL (8.8-10.2); CARBON DIOXIDE LEVEL 23 MEQ/L (21-32); CHLORIDE LEVEL 107 MEQ/L (98-107); CREATININE FOR GFR 1.23 MG/DL (0.70-1.30); GLOMERULAR FILTRATION RATE > 60.0 (>35); GLUCOSE, FASTING 163 MG/DL (70-100); MAGNESIUM LEVEL 1.9 MG/DL (1.8-2.4); NT-PRO BNP 237 PG/ML (<450); POTASSIUM SERUM 4.9 MEQ/L (3.5-5.1); SODIUM LEVEL 140 MEQ/L (136-145)
== END ==
LOC: M LABDRWAD 15:55
PROVIDERS: ATTEND Physician Assistant
DX: I25.5 Ischemic cardiomyopathy (principal)

== ENCOUNTER → 2021-10-17 | Outpatient (CLI) | payer MEDICARE ==
[2021-10-17 17:31] LABS: CALCIUM LEVEL 9.1 MG/DL (8.8-10.2); CREATININE FOR GFR 1.5 MG/DL (0.70-1.30); GLOMERULAR FILTRATION RATE 47.9 (>35); POTASSIUM SERUM 5.1 MEQ/L (3.5-5.1)
== END ==
LOC: M ADAMS 13:44
PROVIDERS: ATTEND Physician Assistant
DX: I25.5 Ischemic cardiomyopathy (principal)

== ENCOUNTER → 2022-02-04 | Outpatient (CLI) | payer MEDICARE ==
[2022-02-04 17:16] LABS: CALCIUM LEVEL 9.1 MG/DL (8.8-10.2); CREATININE FOR GFR 1.42 MG/DL (0.70-1.30); GLOMERULAR FILTRATION RATE 50.9 (>35); MAGNESIUM LEVEL 1.9 MG/DL (1.8-2.4)
== END ==
LOC: M LABDRWAD 14:38
PROVIDERS: ATTEND Physician Assistant
DX: I25.5 Ischemic cardiomyopathy (principal)

== ENCOUNTER → 2022-05-02 | Outpatient (CLI) | payer MEDICARE ==
[2022-05-03 12:54] LABS: HEMATOCRIT 42.5 % (42.0-52.0); HEMOGLOBIN 13.3 g/dl (13.5-17.5); MEAN CORPUSCULAR HEMOGLOBIN 32.1 pg (27.0-33.0); MEAN CORPUSCULAR HGB CONC 31.3 g/dl (32.0-36.5); MEAN CORPUSCULAR VOLUME 102.7 fl (80.0-96.0); PLATELET COUNT, AUTOMATED 231 10^3/uL (150-450); RED BLOOD COUNT 4.14 10^6/uL (4.30-6.10); WHITE BLOOD COUNT 9.7 10^3/uL (4.0-10.0)
[2022-05-03 13:27] LABS: MAGNESIUM LEVEL 1.7 MG/DL (1.8-2.4)
[2022-05-03 13:29] LABS: BLOOD UREA NITROGEN 21 MG/DL (9-23); CALCIUM LEVEL 8.8 MG/DL (8.3-10.6); CARBON DIOXIDE LEVEL 22 MMOL/L (20-31); CHLORIDE LEVEL 104 MMOL/L (98-107); CREATININE FOR GFR 0.97 MG/DL (0.70-1.30); GLOMERULAR FILTRATION RATE > 60.0 (>35); GLUCOSE, FASTING 162 MG/DL (74-106); POTASSIUM SERUM 5.4 MMOL/L (3.5-5.1); SODIUM LEVEL 139 MMOL/L (136-145)
== END ==
LOC: M LABDRWAD 15:20
PROVIDERS: ATTEND Physician Assistant
DX: I25.5 Ischemic cardiomyopathy (principal); I48.3 Typical atrial flutter

== ENCOUNTER → 2022-05-08 | Outpatient (REF) | payer MEDICARE ==
[2022-05-08 16:26] LABS: BASO # 0.1 10^3/uL (0.0-0.2); BASO % 0.9 % (0.0-1.0); EOS # 0.1 10^3/uL (0.0-0.5); EOS % 0.8 % (0.0-3.0); HEMATOCRIT 41.7 % (42.0-52.0); HEMOGLOBIN 13.3 g/dl (13.5-17.5); LYMPH # 2.3 10^3/uL (1.5-5.0); LYMPH % 26.2 % (24.0-44.0); MEAN CORPUSCULAR HEMOGLOBIN 32.3 pg (27.0-33.0); MEAN CORPUSCULAR HGB CONC 31.9 g/dl (32.0-36.5); MEAN CORPUSCULAR VOLUME 101.2 fl (80.0-96.0); MONO # 0.8 10^3/uL (0.0-0.8); MONO % 9.6 % (2.0-8.0); NEUTROPHILS # 5.3 10^3/uL (1.5-8.5); NEUTROPHILS % 61.5 % (36.0-66.0); PLATELET COUNT, AUTOMATED 236 10^3/uL (150-450); RED BLOOD COUNT 4.12 10^6/uL (4.30-6.10); WHITE BLOOD COUNT 8.6 10^3/uL (4.0-10.0)
[2022-05-08 16:52] LABS: ALBUMIN 3.3 G/DL (3.2-5.2); ALKALINE PHOSPHATASE 106 U/L (46-116); ALT/SGPT 13 U/L (7.0-40); AST/SGOT 11 U/L (<34); BILIRUBIN,TOTAL 0.4 MG/DL (0.3-1.2); BLOOD UREA NITROGEN 25 MG/DL (9-23); CALCIUM LEVEL 8.9 MG/DL (8.3-10.6); CARBON DIOXIDE LEVEL 24 MMOL/L (20-31); CHLORIDE LEVEL 104 MMOL/L (98-107); CHOLESTEROL LEVEL 150 MG/DL (<200); CHOLESTEROL RISK RATIO 4.21 (<5); CREATININE FOR GFR 1.03 MG/DL (0.70-1.30); GLOMERULAR FILTRATION RATE > 60.0 (>35); GLUCOSE, FASTING 183 MG/DL (74-106); HDL CHOLESTEROL 35.6 MG/DL (>40); LDL CHOLESTEROL 71.4 MG/DL (<100); NON-HDL-C 114 MG/DL; POTASSIUM SERUM 5.2 MMOL/L (3.5-5.1); SODIUM LEVEL 137 MMOL/L (136-145); THYROID STIMULATING HORMONE 1.413 uIU/ML (0.55-4.78); TOTAL PROTEIN 7.2 G/DL (5.7-8.2); TRIGLYCERIDES LEVEL 215 MG/DL (<150)
[2022-05-09 14:41] LABS: TOTAL 25(OH) VITAMIN D 13.7 NG/ML (20.0-100.0)
== END ==
LOC: M SFHCADAM 13:51
PROVIDERS: ATTEND Physician Assistant Medical
DX: I25.10 Atherosclerotic heart disease of native coronary artery without angina pectoris (principal); I48.92 Unspecified atrial flutter; F17.200 Nicotine dependence, unspecified, uncomplicated; E55.9 Vitamin D deficiency, unspecified; E78.2 Mixed hyperlipidemia; E11.65 Type 2 diabetes mellitus with hyperglycemia; F17.210 Nicotine dependence, cigarettes, uncomplicated; I25.5 Ischemic cardiomyopathy; J44.9 Chronic obstructive pulmonary disease, unspecified; D63.8 Anemia in other chronic diseases classified elsewhere; K76.0 Fatty (change of) liver, not elsewhere classified; N40.1 Benign prostatic hyperplasia with lower urinary tract symptoms

== ENCOUNTER → 2022-09-09 | Outpatient (REF) | payer MEDICARE ==
[2022-09-09 17:15] LABS: BLOOD UREA NITROGEN 34 MG/DL (9-23); CALCIUM LEVEL 8.3 MG/DL (8.3-10.6); CARBON DIOXIDE LEVEL 24 MMOL/L (20-31); CHLORIDE LEVEL 106 MMOL/L (98-107); CREATININE FOR GFR 1.23 MG/DL (0.70-1.30); GLOMERULAR FILTRATION RATE > 60.0 (>35); GLUCOSE, FASTING 332 MG/DL (74-106); MAGNESIUM LEVEL 1.7 MG/DL (1.8-2.4); POTASSIUM SERUM 4.9 MMOL/L (3.5-5.1); SODIUM LEVEL 138 MMOL/L (136-145)
== END ==
LOC: M LABDRWAD 15:57
PROVIDERS: ATTEND Physician Assistant
DX: I25.5 Ischemic cardiomyopathy (principal); I48.3 Typical atrial flutter; Z79.899 Other long term (current) drug therapy

== ENCOUNTER → 2022-11-05 | Outpatient (REF) | payer MEDICARE ==
[2022-11-05 18:03] LABS: HEMOGLOBIN A1c 8.3 % (4.0-6.0)
[2022-11-05 18:25] LABS: ALBUMIN 3.2 G/DL (3.2-5.2); ALKALINE PHOSPHATASE 92 U/L (46-116); ALT/SGPT < 9 U/L (7.0-40); AST/SGOT < 8 U/L (<34); BILIRUBIN,TOTAL 0.4 MG/DL (0.3-1.2); BLOOD UREA NITROGEN 25 MG/DL (9-23); CALCIUM LEVEL 9.8 MG/DL (8.3-10.6); CARBON DIOXIDE LEVEL 25 MMOL/L (20-31); CHLORIDE LEVEL 106 MMOL/L (98-107); CREATININE FOR GFR 1.14 MG/DL (0.70-1.30); GLOMERULAR FILTRATION RATE > 60.0 (>35); GLUCOSE, FASTING 171 MG/DL (74-106); SODIUM LEVEL 139 MMOL/L (136-145); THYROID STIMULATING HORMONE 1.485 uIU/ML (0.55-4.78)
[2022-11-05 18:26] LABS: TOTAL 25(OH) VITAMIN D 103.6 NG/ML (20.0-100.0)
== END ==
LOC: M SFHCADAM 14:01
PROVIDERS: ATTEND Physician Assistant Medical
DX: I25.10 Atherosclerotic heart disease of native coronary artery without angina pectoris (principal); F17.200 Nicotine dependence, unspecified, uncomplicated; E55.9 Vitamin D deficiency, unspecified; E78.2 Mixed hyperlipidemia; E11.65 Type 2 diabetes mellitus with hyperglycemia; K76.0 Fatty (change of) liver, not elsewhere classified; Z79.899 Other long term (current) drug therapy

== ENCOUNTER → 2022-11-06 | Outpatient (REF) | payer MEDICARE ==
[2022-11-06 16:46] LABS: CREATININE, URINE 82.2 MG/DL
[2022-11-06 16:47] LABS: MAU/CREAT RATIO 21.8 MCG/MG (0.0-30.0)
== END ==
LOC: M SFHCADAM 15:55
PROVIDERS: ATTEND Physician Assistant Medical
DX: I25.10 Atherosclerotic heart disease of native coronary artery without angina pectoris (principal); E55.9 Vitamin D deficiency, unspecified; E78.2 Mixed hyperlipidemia; E11.65 Type 2 diabetes mellitus with hyperglycemia; K76.0 Fatty (change of) liver, not elsewhere classified; F17.200 Nicotine dependence, unspecified, uncomplicated

== ENCOUNTER → 2023-05-05 | Outpatient (REF) | payer MEDICARE ==
[2023-05-05 17:38] LABS: BASO # 0.1 10^3/uL (0.0-0.2); BASO % 0.6 % (0.0-1.0); EOS # 0.1 10^3/uL (0.0-0.5); EOS % 0.9 % (0.0-3.0); HEMATOCRIT 44.1 % (42.0-52.0); HEMOGLOBIN 13.9 g/dl (13.5-17.5); LYMPH # 2.1 10^3/uL (1.5-5.0); LYMPH % 23.8 % (24.0-44.0); MEAN CORPUSCULAR HEMOGLOBIN 32.1 pg (27.0-33.0); MEAN CORPUSCULAR HGB CONC 31.5 g/dl (32.0-36.5); MEAN CORPUSCULAR VOLUME 101.8 fl (80.0-96.0); MONO # 0.9 10^3/uL (0.0-0.8); MONO % 9.5 % (2.0-8.0); NEUTROPHILS # 5.8 10^3/uL (1.5-8.5); NEUTROPHILS % 64.3 % (36.0-66.0); PLATELET COUNT, AUTOMATED 226 10^3/uL (150-450); RED BLOOD COUNT 4.33 10^6/uL (4.30-6.10)
[2023-05-05 18:07] LABS: HEMOGLOBIN A1c 7.9 % (4.0-6.0)
[2023-05-05 18:58] LABS: ALBUMIN 3.5 G/DL (3.2-5.2); ALKALINE PHOSPHATASE 102 U/L (46-116); ALT/SGPT 10 U/L (7.0-40); AST/SGOT < 8 U/L (<34); BILIRUBIN,TOTAL 0.4 MG/DL (0.3-1.2); BLOOD UREA NITROGEN 27 MG/DL (9-23); CALCIUM LEVEL 8.9 MG/DL (8.3-10.6); CARBON DIOXIDE LEVEL 23 MMOL/L (20-31); CHLORIDE LEVEL 109 MMOL/L (98-107); CHOLESTEROL LEVEL 99 MG/DL (<200); CHOLESTEROL RISK RATIO 2.93 (<5); CREATININE FOR GFR 1.06 MG/DL (0.70-1.30); GLOMERULAR FILTRATION RATE > 60.0 (>35); GLUCOSE, FASTING 194 MG/DL (74-106); HDL CHOLESTEROL 33.7 MG/DL (>40); IRON (FE) 61 UG/DL (65-175); LDL CHOLESTEROL 37.3 MG/DL (<100); NON-HDL-C 65.3 MG/DL; PERCENT SATURATION 18.3 % (19.7-50.0); POTASSIUM SERUM 4.6 MMOL/L (3.5-5.1); SODIUM LEVEL 142 MMOL/L (136-145); TOTAL IRON BINDING CAPACITY 334 UG/DL (250-425); TOTAL PROTEIN 7.4 G/DL (5.7-8.2); TRIGLYCERIDES LEVEL 140 MG/DL (<150)
[2023-05-05 18:59] LABS: THYROID STIMULATING HORMONE 0.972 uIU/ML (0.55-4.78)
[2023-05-05 19:00] LABS: FOLATE 20.9 NG/ML (>5.4); TOTAL 25(OH) VITAMIN D 39.4 NG/ML (20.0-100.0); VITAMIN B12 LEVEL 388 PG/ML (211-911)
== END ==
LOC: M SFHCADAM 15:14
PROVIDERS: ATTEND Physician Assistant Medical
DX: I25.10 Atherosclerotic heart disease of native coronary artery without angina pectoris (principal); E55.9 Vitamin D deficiency, unspecified; E78.2 Mixed hyperlipidemia; E11.65 Type 2 diabetes mellitus with hyperglycemia; D63.8 Anemia in other chronic diseases classified elsewhere

== ENCOUNTER → 2023-11-06 | Outpatient (REF) | payer MEDICARE ==
[~2023-11-06] MED LIST changes: +HYDR-161 PO; -HYDR10TAB PO; +ONDA-282 PO; -ONDA4TAB6 PO
[2023-11-06 19:26] LABS: BASO # 0.1 10^3/uL (0.0-0.2); BASO % 0.7 % (0.0-1.0); EOS # 0.1 10^3/uL (0.0-0.5); HEMOGLOBIN 13.3 g/dl (13.5-17.5); LYMPH # 2.5 10^3/uL (1.5-5.0); LYMPH % 26.9 % (24.0-44.0); MEAN CORPUSCULAR HEMOGLOBIN 32.6 pg (27.0-33.0); MEAN CORPUSCULAR HGB CONC 31.7 g/dl (32.0-36.5); MEAN CORPUSCULAR VOLUME 102.9 fl (80.0-96.0); MONO # 0.9 10^3/uL (0.0-0.8); MONO % 9.4 % (2.0-8.0); NEUTROPHILS # 5.6 10^3/uL (1.5-8.5); NEUTROPHILS % 61.5 % (36.0-66.0); PLATELET COUNT, AUTOMATED 184 10^3/uL (150-450); RED BLOOD COUNT 4.08 10^6/uL (4.30-6.10); WHITE BLOOD COUNT 9.1 10^3/uL (4.0-10.0)
[2023-11-06 19:46] LABS: HEMOGLOBIN A1c 7.9 % (4.0-6.0)
[2023-11-06 19:56] LABS: ALBUMIN 3.3 G/DL (3.2-5.2); ALKALINE PHOSPHATASE 102 U/L (46-116); ALT/SGPT 12 U/L (7.0-40); AST/SGOT < 8 U/L (<34); BILIRUBIN,TOTAL 0.6 MG/DL (0.3-1.2); BLOOD UREA NITROGEN 31 MG/DL (9-23); CALCIUM LEVEL 8.7 MG/DL (8.3-10.6); CARBON DIOXIDE LEVEL 26 MMOL/L (20-31); CHLORIDE LEVEL 106 MMOL/L (98-107); CHOLESTEROL LEVEL 94 MG/DL (<200); CREATININE FOR GFR 1.15 MG/DL (0.70-1.30); FERRITIN 81.4 NG/ML (10.5-307.3); FOLATE 18.7 NG/ML (>5.4); GLOMERULAR FILTRATION RATE > 60.0 (>35); GLUCOSE, FASTING 230 MG/DL (74-106); HDL CHOLESTEROL 26.1 MG/DL (>40); IRON (FE) 81 UG/DL (65-175); LDL CHOLESTEROL 26.1 MG/DL (<100); MAGNESIUM LEVEL 1.7 MG/DL (1.8-2.4); NON-HDL-C 67.9 MG/DL; PERCENT SATURATION 26.9 % (19.7-50.0); POTASSIUM SERUM 4.9 MMOL/L (3.5-5.1); SODIUM LEVEL 140 MMOL/L (136-145); THYROID STIMULATING HORMONE 1.402 uIU/ML (0.55-4.78); TOTAL IRON BINDING CAPACITY 301 UG/DL (250-425); TOTAL PROTEIN 6.7 G/DL (5.7-8.2); TRIGLYCERIDES LEVEL 209 MG/DL (<150)
[2023-11-06 19:57] LABS: VITAMIN B12 LEVEL 454 PG/ML (211-911)
== END ==
LOC: M SFHCADAM 14:32
PROVIDERS: ATTEND Physician Assistant Medical
DX: I25.10 Atherosclerotic heart disease of native coronary artery without angina pectoris (principal); E55.9 Vitamin D deficiency, unspecified; E78.2 Mixed hyperlipidemia; E11.65 Type 2 diabetes mellitus with hyperglycemia; D63.8 Anemia in other chronic diseases classified elsewhere

== ENCOUNTER → 2024-03-04 | Outpatient (REF) | payer MEDICARE ==
[2024-03-04 19:19] LABS: BASO % 0.5 % (0.0-1.0); EOS # 0.1 10^3/uL (0.0-0.5); EOS % 0.8 % (0.0-3.0); HEMATOCRIT 43.7 % (42.0-52.0); HEMOGLOBIN 13.9 g/dl (13.5-17.5); LYMPH # 1.9 10^3/uL (1.5-5.0); LYMPH % 22.4 % (24.0-44.0); MEAN CORPUSCULAR HEMOGLOBIN 32.2 pg (27.0-33.0); MEAN CORPUSCULAR HGB CONC 31.8 g/dl (32.0-36.5); MEAN CORPUSCULAR VOLUME 101.2 fl (80.0-96.0); MONO # 0.7 10^3/uL (0.0-0.8); MONO % 8.6 % (2.0-8.0); NEUTROPHILS # 5.7 10^3/uL (1.5-8.5); NEUTROPHILS % 67.2 % (36.0-66.0); PLATELET COUNT, AUTOMATED 226 10^3/uL (150-450); RED BLOOD COUNT 4.32 10^6/uL (4.30-6.10); WHITE BLOOD COUNT 8.5 10^3/uL (4.0-10.0)
[2024-03-04 19:43] LABS: ALBUMIN 3.4 G/DL (3.2-5.2); ALKALINE PHOSPHATASE 133 U/L (40-129); ALT/SGPT 9 U/L (7.0-40); AST/SGOT < 8 U/L (<34); BILIRUBIN,TOTAL 0.6 MG/DL (0.3-1.2); BLOOD UREA NITROGEN 19 MG/DL (9-23); CALCIUM LEVEL 9.3 MG/DL (8.3-10.6); CARBON DIOXIDE LEVEL 23 MMOL/L (20-31); CHLORIDE LEVEL 108 MMOL/L (98-107); CHOLESTEROL LEVEL 107 MG/DL (<200); CHOLESTEROL RISK RATIO 3.09 (<5); CREATININE FOR GFR 0.96 MG/DL (0.70-1.30); GLOMERULAR FILTRATION RATE > 60.0 (>35); GLUCOSE, FASTING 159 MG/DL (74-106); HDL CHOLESTEROL 34.6 MG/DL (>40); LDL CHOLESTEROL 52.6 MG/DL (<100); NON-HDL-C 72.4 MG/DL; POTASSIUM SERUM 4.5 MMOL/L (3.5-5.1); SODIUM LEVEL 140 MMOL/L (136-145); TOTAL PROTEIN 7.5 G/DL (5.7-8.2); TRIGLYCERIDES LEVEL 99 MG/DL (<150)
[2024-03-04 19:45] LABS: THYROID STIMULATING HORMONE 1.087 uIU/ML (0.55-4.78); TOTAL 25(OH) VITAMIN D 30.4 NG/ML (20.0-100.0)
[2024-03-04 20:27] LABS: HEMOGLOBIN A1c 8.1 % (4.0-6.0)
== END ==
LOC: M SFHCADAM 14:21
PROVIDERS: ATTEND Physician Assistant Medical
DX: I25.10 Atherosclerotic heart disease of native coronary artery without angina pectoris (principal); E55.9 Vitamin D deficiency, unspecified; E78.2 Mixed hyperlipidemia; E11.65 Type 2 diabetes mellitus with hyperglycemia; D63.8 Anemia in other chronic diseases classified elsewhere; K76.0 Fatty (change of) liver, not elsewhere classified

== ENCOUNTER → 2024-03-11 | Outpatient (CLI) | payer MEDICARE | LOC: M EKG 14:34 | PROVIDERS: ATTEND Physician Assistant Medical | DX: I48.92 Unspecified atrial flutter (principal) ==

== ENCOUNTER → 2024-06-09 | Outpatient (CLI) | payer MEDICARE | LOC: M CARPUL 10:09 | PROVIDERS: ATTEND Physician Assistant | DX: I48.3 Typical atrial flutter (principal); I25.5 Ischemic cardiomyopathy; I50.30 Unspecified diastolic (congestive) heart failure; I08.0 Rheumatic disorders of both mitral and aortic valves; I37.1 Nonrheumatic pulmonary valve insufficiency ==

== ENCOUNTER → 2024-08-02 | Outpatient (REF) | payer MEDICARE ==
[2024-08-02 18:48] LABS: BLOOD UREA NITROGEN 31 MG/DL (9-23); CALCIUM LEVEL 8.8 MG/DL (8.3-10.6); CARBON DIOXIDE LEVEL 27 MMOL/L (20-31); CHLORIDE LEVEL 99 MMOL/L (98-107); CREATININE FOR GFR 1.01 MG/DL (0.70-1.30); GLOMERULAR FILTRATION RATE > 60.0 (>35); GLUCOSE, FASTING 391 MG/DL (74-106); MAGNESIUM LEVEL 1.7 MG/DL (1.8-2.4); POTASSIUM SERUM 5.4 MMOL/L (3.5-5.1); SODIUM LEVEL 135 MMOL/L (136-145)
== END ==
LOC: M LABDRWAD 16:58
PROVIDERS: ATTEND Physician Assistant
DX: I48.3 Typical atrial flutter (principal); I25.5 Ischemic cardiomyopathy

== ENCOUNTER → 2024-08-17 | Outpatient (REF) | payer MEDICARE ==
[2024-08-17 19:04] LABS: CALCIUM LEVEL 8.9 MG/DL (8.3-10.6); CREATININE FOR GFR 0.9 MG/DL (0.70-1.30); GLOMERULAR FILTRATION RATE 84.7 (>35); POTASSIUM SERUM 5.8 MMOL/L (3.5-5.1)
== END ==
LOC: M LABDRWAD 17:18
PROVIDERS: ATTEND Physician Assistant
DX: I48.3 Typical atrial flutter (principal); I10 Essential (primary) hypertension; I49.3 Ventricular premature depolarization

== ENCOUNTER → 2024-11-16 | Outpatient (REF) | payer MEDICARE ==
[~2024-11-16] MED LIST changes: -FLOM0.4C39 PO; +TAMS-18 PO
[2024-11-16 17:39] LABS: BASO # 0.1 10^3/uL (0.0-0.2); BASO % 0.6 % (0.0-1.0); EOS # 0.0 10^3/uL (0.0-0.5); EOS % 0.4 % (0.0-3.0); LYMPH # 2.4 10^3/uL (1.5-5.0); LYMPH % 23.9 % (24.0-44.0); MONO # 0.8 10^3/uL (0.0-0.8); MONO % 7.8 % (2.0-8.0); NEUTROPHILS # 6.6 10^3/uL (1.5-8.5); NEUTROPHILS % 66.6 % (36.0-66.0); PLATELET COUNT, AUTOMATED 230 10^3/uL (150-450)
[2024-11-16 17:55] LABS: ESTIMATED AVERAGE GLUCOSE 266.0 MG/DL (60-110)
[2024-11-16 18:04] LABS: ALT/SGPT 9.0 U/L (7.0-40); AST/SGOT 10.0 U/L (<34); CALCIUM LEVEL 8.9 MG/DL (8.3-10.6); CARBON DIOXIDE LEVEL 27.0 MMOL/L (20-31); CHLORIDE LEVEL 102.0 MMOL/L (98-107); CHOLESTEROL LEVEL 84.0 MG/DL (<200); CHOLESTEROL RISK RATIO 2.6 (<5); CREATININE FOR GFR 0.99 MG/DL (0.70-1.30); GLOMERULAR FILTRATION RATE 75.6 (>35); LDL CHOLESTEROL 35.4 MG/DL (<100); NON-HDL-C 51.8 MG/DL; POTASSIUM SERUM 5.3 MMOL/L (3.5-5.1); SODIUM LEVEL 140.0 MMOL/L (136-145); TOTAL 25(OH) VITAMIN D 32.5 NG/ML (20.0-100.0); TRIGLYCERIDES LEVEL 82.0 MG/DL (<150)
[2024-11-16 18:06] LABS: FREE T4 1.31 NG/DL (0.89-1.76); VITAMIN B12 LEVEL 417.0 PG/ML (211-911)
== END ==
LOC: M SFHCADAM 14:46
PROVIDERS: ATTEND Physician Assistant Medical
DX: I48.92 Unspecified atrial flutter (principal); I25.10 Atherosclerotic heart disease of native coronary artery without angina pectoris; E55.9 Vitamin D deficiency, unspecified; E78.2 Mixed hyperlipidemia; E11.65 Type 2 diabetes mellitus with hyperglycemia; I25.5 Ischemic cardiomyopathy; D63.8 Anemia in other chronic diseases classified elsewhere

== ENCOUNTER → 2025-02-10 | Outpatient (REF) | payer MEDICARE ==
[2025-02-10 18:04] LABS: CALCIUM LEVEL 8.7 MG/DL (8.3-10.6); CARBON DIOXIDE LEVEL 27.0 MMOL/L (20-31); CHLORIDE LEVEL 104.0 MMOL/L (98-107); CREATININE FOR GFR 1.07 MG/DL (0.70-1.30); GLOMERULAR FILTRATION RATE 68.4 (>35); MAGNESIUM LEVEL 2.2 MG/DL (1.8-2.4); POTASSIUM SERUM 5.5 MMOL/L (3.5-5.1); SODIUM LEVEL 142.0 MMOL/L (136-145)
== END ==
LOC: M LABDRWAD 16:46
PROVIDERS: ATTEND Physician Assistant
DX: I25.5 Ischemic cardiomyopathy (principal); I48.3 Typical atrial flutter

== ENCOUNTER → 2025-02-10 | Outpatient (REF) | payer MEDICARE ==
[2025-02-10 18:03] LABS: ALT/SGPT 10.0 U/L (7.0-40); AST/SGOT 11.0 U/L (<34); CALCIUM LEVEL 8.7 MG/DL (8.3-10.6); CARBON DIOXIDE LEVEL 27.0 MMOL/L (20-31); CHLORIDE LEVEL 104.0 MMOL/L (98-107); CREATININE FOR GFR 1.08 MG/DL (0.70-1.30); GLOMERULAR FILTRATION RATE 67.7 (>35); POTASSIUM SERUM 5.5 MMOL/L (3.5-5.1); SODIUM LEVEL 142.0 MMOL/L (136-145)
[2025-02-10 18:40] LABS: ESTIMATED AVERAGE GLUCOSE 192.0 MG/DL (60-110)
== END ==
LOC: M SFHCADAM 14:49
PROVIDERS: ATTEND Physician Assistant Medical
DX: E11.65 Type 2 diabetes mellitus with hyperglycemia (principal)

== ENCOUNTER → 2025-02-24 | Outpatient (REF) | payer MEDICARE ==
[2025-02-24 19:31] LABS: CALCIUM LEVEL 8.9 MG/DL (8.3-10.6); CARBON DIOXIDE LEVEL 28.0 MMOL/L (20-31); CHLORIDE LEVEL 102.0 MMOL/L (98-107); CREATININE FOR GFR 1.03 MG/DL (0.70-1.30); GLOMERULAR FILTRATION RATE 71.6 (>35); MAGNESIUM LEVEL 2.1 MG/DL (1.8-2.4); POTASSIUM SERUM 4.7 MMOL/L (3.5-5.1); SODIUM LEVEL 140.0 MMOL/L (136-145)
== END ==
LOC: M LABDRWAD 17:24
PROVIDERS: ATTEND Physician Assistant
DX: I25.5 Ischemic cardiomyopathy (principal); I48.3 Typical atrial flutter